=== PATIENT | male | born 1940 | race Two or more races ===

== ENCOUNTER → 2018-02-24 10:00 | Outpatient (CLI) | payer OTHER ==
[~2018-02-24 10:00] MED LIST: ATENOLOL25 MG PO; LIPITOR40 MG PO; PLAVIX75 MG; SYNTHROID125 MCG PO
== END | disposition home or self-care (01) ==
LOC: LAB 10:00
DX: I11.9 Hypertensive heart disease without heart failure (principal); E78.2 Mixed hyperlipidemia; N39.0 Urinary tract infection, site not specified; E03.8 Other specified hypothyroidism; Z80.9 Family history of malignant neoplasm, unspecified; I99.8 Other disorder of circulatory system; Z12.11 Encounter for screening for malignant neoplasm of colon

== ENCOUNTER 2018-09-22 00:34 | Emergency (ER) | payer OTHER ==
[~2018-09-22] VITALS: Ht 182.9 cm; Wt 92.1 kg
[2018-09-22] MEDS ORDERED: LIPITOR40 MG (00:52)
[2018-09-22] MEDS ORDERED: FENASTERIDE (00:52)
[2018-09-22] MEDS ORDERED: PLAVIX75 MG (00:52)
[2018-09-22] MEDS ORDERED: ATENOLOL50 MG (00:52)
[2018-09-22] MEDS ORDERED: NAMENDA5 MG (00:53)
[2018-09-22] MEDS ORDERED: INTESTINEX680 M1 PO (01:44)
[2018-09-22] MEDS ORDERED: AMOX-CLAV 875-1 EACH PO (01:44)
[2018-09-22] MEDS ORDERED: KETO10TA2 PO (01:44)
== END 2018-09-22 02:08 | disposition home or self-care (01) ==
LOC: ER 00:34
DX: K11.20 Sialoadenitis, unspecified (principal)

== ENCOUNTER → 2019-03-02 | Emergency (ER) | payer OTHER ==
[~2019-03-02] VITALS: Ht 188 cm; Wt 99.8 kg
[~2019-03-02] MED LIST changes: +AMOX-CLAV 875-1 EACH PO; +ATENOLOL50 MG; +FENASTERIDE; +INTESTINEX680 M1 PO; +KETO10TA2 PO; +LIPITOR40 MG; +NAMENDA5 MG
== END | disposition left against medical advice (07) ==
LOC: ER 00:23
DX: R07.89 Other chest pain (principal)